=== PATIENT | male | born 1990 ===

== ENCOUNTER 2018-10-29 12:18 | Outpatient (CLI) | payer OTHER ==
[~2018-10-29] VITALS: Ht 170.2 cm; Wt 99.8 kg
== END 2018-10-29 12:35 | disposition home or self-care (01) ==
LOC: OFIC 805 12:18
DX: J34.89 Other specified disorders of nose and nasal sinuses (principal); J34.3 Hypertrophy of nasal turbinates; R09.81 Nasal congestion